=== PATIENT | female | born 1950 | race Caucasian/White ===

== ENCOUNTER 2024-02-15 06:29 | Day surgery (SDC) | payer MEDICARE, OTHER, SELFPAY ==
[2024-01-24 13:53] VITALS: BMI 42.4
[2024-01-24 14:17] LABS: % Basophils 1.2 % (0-2); % Eosinophils 5.8 % (0-6); % Immature Granulocytes 0.1 % (0-0.5); % Lymphocytes 17.8 % (20.5-51.1); % Monocytes 8.9 % (1.7-9.3); % Neutrophils 66.2 % (42.2-75.2); Absolute Basophils 0.1 10^3/uL (0-0.2); Absolute Eosinophils 0.4 10^3/uL (0-0.7); Absolute Lymphocytes 1.2 10^3/uL (1.2-3.4); Absolute Monocytes 0.6 10^3/uL (0.1-0.6); Absolute Neutrophils 4.5 10^3/uL (1.4-6.5); Hematocrit 32.4 % (37.0-47.0); Hemoglobin 10.7 g/dL (12.0-16.0); Mean Corpuscular Hgb 26.9 pg (27.0-31.0); Mean Corpuscular Volume 81.4 fL (81.0-99.0); Mean Platelet Volume 9.5 fL (7.4-10.4); Nucleated Red Blood Cells % 0 %; Platelet Count 382 10^3/uL (130-400); Red Blood Cell Count 3.98 10^6/uL (4.20-5.40); Red Cell Dist. Width 15.7 % (11.5-14.5); White Blood Cell Count 6.9 10^3/uL (4.8-10.8)
[2024-02-15] VITALS (10 sets, daily range): BP systolic 116–138; BP diastolic 65–126; BMI 42.4
[2024-02-15 08:05] LABS: Glucose - Point of Care 140 mg/dl (70-99)
[2024-02-15] MEDS: NORMOSOL-R/PLASMALYTE-A 1000 IV (08:05)
[2024-02-15] MEDS: TYLENOL 1000 MG PO (08:16)
[2024-02-15] MEDS: CELEBREX 200 MG PO (08:16)
[2024-02-15 11:09] LABS: Glucose - Point of Care 147 mg/dl (70-99)
[2024-02-15] MEDS: ROXICODONE 5 MG PO (12:23)
== END 2024-02-15 13:18 | disposition home or self-care (01) ==
LOC: SDS 06:29
PROVIDERS: ATTENDING PHYSICIAN Orthopaedic Surgery Hand Surgery
DX: S46.011A Strain of muscle(s) and tendon(s) of the rotator cuff of right shoulder, initial encounter (principal); S46.111A Strain of muscle, fascia and tendon of long head of biceps, right arm, initial encounter; M75.41 Impingement syndrome of right shoulder; X58.XXXA Exposure to other specified factors, initial encounter
CPT/HCPCS: 29827; 29826; 29823; 36415; 82962; 85025

== ENCOUNTER → 2024-12-18 10:33 | Outpatient (REF) | payer MEDICARE, SELFPAY | LOC: HWRAD 10:33 | PROVIDERS: ATTENDING PHYSICIAN Orthopaedic Surgery Hand Surgery | DX: M75.121 Complete rotator cuff tear or rupture of right shoulder, not specified as traumatic (principal) | CPT/HCPCS: 73200 ==